=== PATIENT | female | born 1995 | race Two or more races ===

== ENCOUNTER 2025-01-12 15:31 | Emergency (ER) | payer OTHER ==
[~2025-01-12] VITALS: Ht 147.3 cm; Wt 54.4 kg
[2025-01-12 18:17] LABS: HEMOGLOBIN 12.5 g/dL (12.0-15.00); MEAN CELL VOLUME 84.2 fL (80.00-100.00); MEAN CORPUSCULAR HEMOGLOBIN 27.6 pg (27.00-32.0); MEAN CORPUSCULAR HGB CONC 32.8 g/dl (32.0-36.0); PLATELET COUNT 333 K/uL (150-450); RED BLOOD COUNT 4.52 M/uL (4.00-6.00); RED CELL DISTRIBUTION WIDTH 13.6 % (11.5-14.5)
[2025-01-12 19:04] LABS: URINE BACTERIA 3903.2 uL (0.0-1933); URINE BILIRRUBIN Negative (NEGATIVE); URINE BLOOD Large; URINE COLOR Yellow; URINE EPITHELIAL CELLS 39.2 uL (0.0-38.8); URINE GLUCOSE Negative (NEGATIVE); URINE KETONE Negative (NEGATIVE); URINE LEUKOCYTE Trace; URINE NITRATE Positive; URINE PROTEIN Negative (NEGATIVE); URINE RBC 4.5 uL (0.0-20.8); URINE UROBILINOGEN 0.2 E.U./dl; URINE WBC 34.9 uL (0.0-23.2)
[2025-01-12 19:23] LABS: URINE APPEARANCE CLEAR; URINE CAST 0.14 uL (0.0-1.40)
== END 2025-01-12 20:10 | disposition home or self-care (01) ==
LOC: ER 15:32
PROVIDERS: General Practice
DX: O20.9 Hemorrhage in early pregnancy, unspecified (principal); Z3A.01 Less than 8 weeks gestation of pregnancy

== ENCOUNTER 2025-09-04 10:15 | Inpatient (IN) | payer OTHER ==
[~2025-09-04] VITALS: Ht 144.8 cm; Wt 2.3 kg
[2025-09-04 12:52] LABS: BASO % 0.3 % (0.1-1.2); EOS # 0.02 (0.04-0.54); EOS % 0.3 % (0.7-7.0); LYMPH # 2.72 (1.18-3.74); LYMPH % 35.5 % (19.3-53.1); MEAN PLATELET VOLUME 12.40 fl (9.4-12.4); MONO # 0.50 (0.24-0.82); MONO % 6.5 % (4.7-12.5); NEUT # 4.34 (1.56-6.13); NEUT % 56.5 % (34.0-71.1); RED CELL DISTRIBUTION WIDTH 14.9 % (11.6-14.4)
[2025-09-04 13:14] LABS: INR < 0.93
[2025-09-04 13:36] LABS: ALT/SGPT 18.0 U/L (12-78); AST/SGOT 30.0 U/L (15-37); BILIRUBIN TOTAL 0.11 mg/dL (0.3-1.2); BUN CREA RATIO 25.0 (7.0-25.0); CREATININE SERUM 0.85 mg/dL (0.55-1.02); GFR 79.64; GLOBULINA 3.6 G/DL (2.4-3.5); GLUCOSE FASTING 90.0 mg/dL (65-100); OSMOLALITY SERUM 280.0 MOSM/KG (275-295)
[2025-09-04 13:45] LABS: URINE APPEARANCE Turbid; URINE BILIRRUBIN Negative (NEGATIVE); URINE BLOOD Negative; URINE COLOR Yellow; URINE GLUCOSE Negative (NEGATIVE); URINE KETONE Negative (NEGATIVE); URINE LEUKOCYTE Small; URINE NITRATE Positive; URINE PROTEIN >=1000 (NEGATIVE); URINE UROBILINOGEN 0.2 E.U./dl
[2025-09-04 13:49] LABS: URINE CAST 11.73 uL (0.0-1.40); URINE RBC 17.3 uL (0.0-20.8); URINE WBC 227.3 uL (0.0-23.2)
[2025-09-04 13:56] LABS: URINE BACTERIA > 9821.5 uL (0.0-1933); URINE EPITHELIAL CELLS > 201.7 uL (0.0-38.8)
[2025-09-04 14:01] LABS: URINE CRYSTALS MODERATE /HPF
[2025-09-04 14:02] LABS: URINE YEAST FEW /hpf
[2025-09-08] VITALS (11 sets, daily range): BP systolic 108–184; BP diastolic 75–110
[2025-09-08] MEDS ORDERED: MAGNESIUM SULFATE IN WATER 4 GM/100 ML PIGGYBACK IV ONE (06:45)
[2025-09-08] MEDS ORDERED: ERYTHROMYCIN BASE OPHT 1GM EACH TUBE OP ONE (07:09)
[2025-09-08] MEDS ORDERED: OXYTOCIN 10 UNITS/ML VIAL ONE (07:09)
[2025-09-08] MEDS ORDERED: MAGNESIUM SULFATE IN WATER 100 ML IV SCH (07:15)
[2025-09-08] MEDS ORDERED: RINGERS SOLUTION,LACTATED 1,000 ML IV SCH ×2 (07:15→11:00)
[2025-09-08] MEDS ORDERED: MAGNESIUM SULFATE IN WATER 500 ML IV SCH ×2 (07:15→11:00)
[2025-09-08] MEDS ORDERED: CEFAZOLIN SODIUM 1,000 MG VIAL IV SCH ×2 (07:15→14:00)
[2025-09-08] MEDS ORDERED: hydrALAZINE HCL 20 MG VIAL IV STA (07:40)
[2025-09-08] MEDS ORDERED: MAGNESIUM SULFATE IN WATER 0.04 GM/ML IV.SOLN IV ONE (07:50)
[2025-09-08 08:28] LABS: BASO % 0.2 % (0.1-1.2); EOS # 0.03 (0.04-0.54); EOS % 0.3 % (0.7-7.0); LYMPH # 3.24 (1.18-3.74); LYMPH % 34.1 % (19.3-53.1); MEAN PLATELET VOLUME 12.20 fl (9.4-12.4); MONO # 0.60 (0.24-0.82); MONO % 6.3 % (4.7-12.5); NEUT # 5.55 (1.56-6.13); NEUT % 58.5 % (34.0-71.1); RED CELL DISTRIBUTION WIDTH 14.7 % (11.6-14.4)
[2025-09-08 09:00] LABS: INR < 0.93
[2025-09-08 09:02] LABS: ALT/SGPT 12.0 U/L (12-78); AST/SGOT 22.0 U/L (15-37); BILIRUBIN TOTAL 0.16 mg/dL (0.3-1.2); BUN CREA RATIO 23.0 (7.0-25.0); CREATININE SERUM 0.81 mg/dL (0.55-1.02); GFR 84.19; GLOBULINA 3.4 G/DL (2.4-3.5); GLUCOSE FASTING 100.0 mg/dL (65-100); OSMOLALITY SERUM 280.0 MOSM/KG (275-295)
[2025-09-08 10:27] LABS: URINE APPEARANCE Clear; URINE BILIRRUBIN Negative (NEGATIVE); URINE BLOOD Trace; URINE COLOR Yellow; URINE GLUCOSE Negative (NEGATIVE); URINE KETONE Negative (NEGATIVE); URINE LEUKOCYTE Negative; URINE NITRATE Negative; URINE UROBILINOGEN 0.2 E.U./dl
[2025-09-08 10:30] LABS: URINE EPITHELIAL CELLS 48.1 uL (0.0-38.8); URINE RBC 2.3 uL (0.0-20.8); URINE WBC 26.1 uL (0.0-23.2)
[2025-09-08 10:33] LABS: URINE CAST 0.73 uL (0.0-1.40); URINE PROTEIN 300 (NEGATIVE)
[2025-09-08] MEDS ORDERED: MORPHINE SULFATE 4 MG/ML VIAL IV PRN (11:00)
[2025-09-08] MEDS ORDERED: hydrALAZINE HCL 20 MG VIAL ONE (12:36)
[2025-09-08] MEDS ORDERED: hydrALAZINE HCL 20 MG VIAL IV ONE (12:45)
[2025-09-08] MEDS ORDERED: PROMETHAZINE HCL 50 MG/ML AMPUL IM PRN (14:45)
[2025-09-09 01:43] LABS: BASO % 0.1 % (0.1-1.2); EOS # 0.00 (0.04-0.54); EOS % 0.0 % (0.7-7.0); LYMPH # 1.88 (1.18-3.74); LYMPH % 10.5 % (19.3-53.1); MEAN PLATELET VOLUME 12.40 fl (9.4-12.4); MONO # 0.72 (0.24-0.82); MONO % 4.0 % (4.7-12.5); NEUT # 15.15 (1.56-6.13); NEUT % 85.0 % (34.0-71.1); RED CELL DISTRIBUTION WIDTH 14.8 % (11.6-14.4)
[2025-09-09 03:50] VITALS: BP 148/98
[2025-09-09] MEDS ORDERED: LABETALOL HCL 200 MG TABLET PO SCH (05:54)
[2025-09-09 07:46] VITALS: BP 130/87; O2SAT 97
[2025-09-09] MEDS ORDERED: ACETAMINOPHEN 500 MG GEL..CAP PO PRN (09:15)
[2025-09-09 11:22] VITALS: BP 151/97; O2SAT 97
[2025-09-09 13:19] VITALS: BP 147/98
[2025-09-09 18:56] VITALS: BP 149/94
[2025-09-10] VITALS: BP 144/88
[2025-09-10] MEDS ORDERED: LABETALOL HCL 200 MG TABLET PO SCH (09:00)
[2025-09-10 09:52] VITALS: BP 130/70
[2025-09-11 01:14] VITALS: BP 146/86
[2025-09-11] MEDS ORDERED: LABETALOL HCL200 MG PO (08:09)
[2025-09-11] MEDS ORDERED: IBUPROFEN800 MG PO (08:09)
[2025-09-11 09:47] VITALS: BP 129/86
== END 2025-09-11 14:51 | disposition home or self-care (01) | DRG 788 ==
LOC: LDR 09-08 06:40 → O/R 09-08 06:40 → SURG 09-08 07:00 → O/R 09-08 10:26 → LDR 09-08 13:52 → OB/GYN 09-09 10:56
PROVIDERS: ADMIT Specialist; ATTEND Specialist
PROC: 4A1HXCZ Monitoring of Products of Conception, Cardiac Rate, External Approach (ICD-10-PCS; 2025-09-08)
PROC: 10D00Z1 Extraction of Products of Conception, Low, Open Approach (ICD-10-PCS; principal; 2025-09-08 11:00)
DX: O14.14 Severe pre-eclampsia complicating childbirth (principal); O34.211 Maternal care for low transverse scar from previous cesarean delivery; Z3A.39 39 weeks gestation of pregnancy; Z37.0 Single live birth